=== PATIENT | female | born 1995 | race Caucasian/White ===

== ENCOUNTER 2020-05-20 21:19 | Emergency (ER) | payer BC ==
[2020-05-20] MEDS ORDERED: Sodium Chloride 0.9% 2.5 ML Syringe FLUSH PRN (21:31)
[2020-05-20] MEDS ORDERED: Sodium Chloride 0.9% 10 ML Syringe FLUSH PRN (21:31)
--- NOTE | 2020-05-20 21:38 | EDM.PDOC ---
ED HPI GENERAL MEDICAL PROBLEM - General Chief Complaint: Chest Pain Stated Complaint: CHEST PAIN Time Seen by Provider: 05/20/20 21:20 - History of Present Illness INITIAL COMMENTS - FREE TEXT/NARRATIVE: 24-year-old female with no chronic medical problems but who had Covid in February 2020 who is presenting with now resolved substernal chest pain. Patient has had trouble with chest pain on and off since having Covid. Today s he has had 7 out of 10 chest pain all day it worsens with movement and worsens with reaching though it is now 0 out of 10. There is no associated shortness of breath there is no nausea vomiting lightheadedness or dizziness. She denies cough fever or chill. No lower extremity pain or swelling. Patient is a non- smoker. Middle Chest Pain Score (Numeric/FACES): 3 - Related Data Allergies Allergy/AdvReac Type Severity Reaction Status Date / Time No Known Allergies Allergy Verified 05/20/20 21:36 Home Meds: Home Meds Ibuprofen 600 mg PO TIDMEALS 5 Days #15 tablet 05/20/20 [Rx] ED ROS GENERAL - Review of Systems Review Of Systems: See Below Free Text/Narrative/Comment: General: No fever. Skin: No rash. Eyes: No vision problems. ENT: No sore throat. Neck: No neck stiffness. Respiratory: No shortness of breath. Cardiac: Per HPI Gastrointestinal: No nausea, vomiting or abdominal pain. Urinary: No dysuria. Musculoskeletal: No myalgias/arthralgias. Neurologic: No headache. ED EXAM, GENERAL - Physical Exam Exam: See Below Free Text/Narrative:: General Appearance: No acute distress, appears comfortable Skin: No rash HEENT: Normocephalic/atraumatic, sclera anicteric, mucous membranes moist Neck: Normal range of motion Chest and Lungs: Bilateral breath sounds, clear to auscultation Cardiovascular: Minimally tachycardic rate and regular rhythm, no murmur Abdomen: Soft, non-tender Back: Normal Musculoskeletal: No edema or tenderness Neurologic: Awake, alert, no obvious deficits, moving all extremities Psychiatric: Appropriate, cooperative #1 Interpretation EKG Date: 05/20/20 Time: 21:38 EKG Interpretation Comments: Minimal sinus tachycardia with rate of 105 normal axis and otherwise normal intervals no acute ischemia Course - Vital Signs Last Recorded V/S: Last Vital Signs Temp 98.6 F 05/20/20 21:32 Pulse 112 H 05/20/20 22:30 Resp 20 05/20/20 22:30 BP 118/79 05/20/20 22:30 Pulse Ox 99 05/20/20 22:30 - Orders/Labs/Meds Orders: Active Orders 24 hr Category Date Time Status Saline Lock Insert [OM.PC] Stat Oth 05/20/20 21:31 Ordered Labs: Laboratory Tests 05/20/20 05/20/20 05/20/20 Range/Units 21:30 21:30 21:30 WBC 8.99 (4.0-11.0) K/uL RBC 4.77 (4.30-5.90) M/uL Hgb 13.6 (12.0-16.0) g/dL Hct 41.6 (36.0-46.0) % MCV 87.2 (80.0-98.0) fL MCH 28.5 (27.0-32.0) pg MCHC 32.7 (31.0-37.0) g/dL RDW Std Deviation 44.0 (28.0-62.0) fl RDW Coeff of Leeanne 14 (11.0-15.0) % Plt Count 300 (150-400) K/uL MPV 10.00 (7.40-12.00) fL Neut % (Auto) 44.1 L (48.0-80.0) % Lymph % (Auto) 43.9 H (16.0-40.0) % [place] % (Auto) 7.7 (0.0-15.0) % Eos % (Auto) 3.9 (0.0-7.0) % Baso % (Auto) 0.4 (0.0-1.5) % Neut # (Auto) 4.0 (1.4-5.7) K/uL Lymph # (Auto) 4.0 H (0.6-2.4) K/uL [place] # (Auto) 0.7 (0.0-0.8) K/uL Eos # (Auto) 0.4 (0.0-0.7) K/uL Baso # (Auto) 0.0 (0.0-0.1) K/uL Nucleated RBC % 0.0 /100WBC Nucleated RBCs # 0 K/uL D-Dimer, Quantitative < 0.19 (0.0-0.50) mg/L FEU Sodium 140 (136-145) mmol/L Potassium 3.6 (3.5-5.1) mmol/L Chloride 104 (98-107) mmol/L Carbon Dioxide 24.7 (21.0-32.0) mmol/L BUN 11 (7.0-18.0) mg/dL Creatinine 0.8 (0.6-1.0) mg/dL Est Cr Clr Drug Dosing 94.44 mL/min Estimated GFR (MDRD) > 60.0 ml/min Glucose 102 (74-106) mg/dL Calcium 9.1 (8.5-10.1) mg/dL Total Bilirubin 0.2 (0.2-1.0) mg/dL AST 13 L (15-37) IU/L ALT 18 (14-63) IU/L Alkaline Phosphatase 67 (46-116) U/L Troponin I < 0.050 (0.000-0.056) ng/mL Total Protein 7.9 (6.4-8.2) g/dL Albumin 4.1 (3.4-5.0) g/dL Globulin 3.8 (2.6-4.0) g/dL Albumin/Globulin Ratio 1.1 (0.9-1.6) Lipase 165 (73-393) U/L Urine HCG, Qual (NEGATIVE) 05/20/20 Range/Units 22:00 WBC (4.0-11.0) K/uL RBC (4.30-5.90) M/uL Hgb (12.0-16.0) g/dL Hct (36.0-46.0) % MCV (80.0-98.0) fL MCH (27.0-32.0) pg MCHC (31.0-37.0) g/dL RDW Std Deviation (28.0-62.0) fl RDW Coeff of Leeanne (11.0-15.0) % Plt Count (150-400) K/uL MPV (7.40-12.00) fL Neut % (Auto) (48.0-80.0) % Lymph % (Auto) (16.0-40.0) % [place] % (Auto) (0.0-15.0) % Eos % (Auto) (0.0-7.0) % Baso % (Auto) (0.0-1.5) % Neut # (Auto) (1.4-5.7) K/uL Lymph # (Auto) (0.6-2.4) K/uL [place] # (Auto) (0.0-0.8) K/uL Eos # (Auto) (0.0-0.7) K/uL Baso # (Auto) (0.0-0.1) K/uL Nucleated RBC % /100WBC Nucleated RBCs # K/uL D-Dimer, Quantitative (0.0-0.50) mg/L FEU Sodium (136-145) mmol/L Potassium (3.5-5.1) mmol/L Chloride (98-107) mmol/L Carbon Dioxide (21.0-32.0) mmol/L BUN (7.0-18.0) mg/dL Creatinine (0.6-1.0) mg/dL Est Cr Clr Drug Dosing mL/min Estimated GFR (MDRD) ml/min Glucose (74-106) mg/dL Calcium (8.5-10.1) mg/dL Total Bilirubin (0.2-1.0) mg/dL AST (15-37) IU/L ALT (14-63) IU/L Alkaline Phosphatase (46-116) U/L Troponin I (0.000-0.056) ng/mL Total Protein (6.4-8.2) g/dL Albumin (3.4-5.0) g/dL Globulin (2.6-4.0) g/dL Albumin/Globulin Ratio (0.9-1.6) Lipase (73-393) U/L Urine HCG, Qual NEGATIVE (NEGATIVE) Meds: Medications Discontinued Medications Generic Name Dose Route Start Last Admin Trade Name Freq PRN Reason Stop Dose Admin Ketorolac Tromethamine 15 mg 05/20/20 23:13 05/20/20 23:17 Toradol IVPUSH 05/20/20 23:14 15 mg NOW ONE Administration Sodium Chloride 10 ml 05/20/20 21:31 05/20/20 21:37 Saline Flush FLUSH 10 ml ASDIRECTED PRN Administration Keep Vein Open Sodium Chloride 2.5 ml 05/20/20:31 05/20/20 21:36 Saline Flush FLUSH 2.5 ml ASDIRECTED PRN Administration Keep Vein Open Departure - Departure Time of Disposition: 23:04 Disposition: Home, Self-Care 01 Condition: Good Clinical Impression: Chest pain - Discharge Information *PRESCRIPTION DRUG MONITORING PROGRAM REVIEWED*: Not Applicable *COPY OF PRESCRIPTION DRUG MONITORING REPORT IN PATIENT LINDY: Not Applicable Prescriptions: Ibuprofen 600 mg PO TIDMEALS 5 Days #15 tablet Instructions: Chest Wall Pain, [id number] Referrals: [facility] [Primary Care Provider] - Forms: ED Department Discharge Additional Instructions: Your EKG today was normal. Your labs were normal. Your chest x-ray was normal. I think the pain that you are experiencing is due to some inflammation inside the wall of your chest. I encourage you to take the ibuprofen as scheduled for 5 days with food. It is safe to combine this with Tylenol if you have additional discomfort. If you are feeling perfectly normal after completing this course, then you do not need to follow-up beyond your normal well visits. However, if you have any residual symptoms after completing the course then please follow-up with your primary care doctor. Sepsis Event Note (ED) - Focused Exam Vital Signs: Vital Signs Temp Pulse Resp BP Pulse Ox 05/20/20 22:30 112 H 20 118/79 99 05/20/20 21:32 98.6 F 121 H 24 H 140/83 99 - My Orders Last 24 Hours: My Active Orders 05/20/20 21:31 Saline Lock Insert [OM.PC] Stat - Assessment/Plan Last 24 Hours: My Active Orders 05/20/20 21:31 Saline Lock Insert [OM.PC] Stat Assessment:: 24-year-old female presenting with now resolved substernal chest pain. The lack of association with food the fact that worsens with bending and twisting and wi th reaching suggests musculoskeletal chest pain potentially pleurisy. However, other etiologies considered as well she does have a minimal tachycardia and I think on balance this is related to anxiety. However, PE considered and D-dimer sent. Very low concern for ACS and EKG is without acute ischemia. Troponin sent to evaluate for any findings of myocarditis but I think is very unlikely. Pneumonia pneumothorax considered also felt less likely but chest x-ray pending. There is no epigastric or right upper quadrant tenderness that would suggest biliary pathology. Should unexpected LFT abnormalities be found and could consider right upper quadrant ultrasound at that time. Right now patient is asymptomatic no indication for treatment at this time. If evaluation is reassuring, I am optimistic for discharge home with PCP follow-up but will continue to reassess. Patient's labs are normal D-dimer normal chest x-ray normal. Patient has remained asymptomatic here. She was given a dose of Toradol as the pharmacies are closed she was discharged with ibuprofen strict return precautions discussed and understood primary care follow-up encouraged.
[2020-05-20 22:10] LABS: BLOOD UREA NITROGEN,BUN 11 mg/dL (7.0-18.0); CARBON DIOXIDE,CO2 24.7 mmol/L (21.0-32.0); CHLORIDE,CL 104 mmol/L (98-107); GLUCOSE RANDOM 102 mg/dL (74-106); LIPASE 165 U/L (73-393); POTASSIUM,K 3.6 mmol/L (3.5-5.1); SODIUM,NA 140 mmol/L (136-145)
--- NOTE | 2020-05-20 22:58 | CR ---
Indication: Chest pain Technique: Chest 2 views Comparison: None Findings/Impression: Cardiovascular and mediastinum: Heart size and vasculature are normal in caliber and appearance. Mediastinum is within normal limits. Lungs and pleural spaces: Lungs are clear. No sign of infiltrate or mass. No sign of pleural effusion. No pneumothorax. Bones and soft tissues: No significant findings. Dictated by Julián Castaneda MD @ May 20 2020 10:57PM Signed by Dr. Julián Castaneda @ May 20 2020 10:58PM
[2020-05-20] MEDS ORDERED: Ketorolac 15 MG/ML SDV IVPUSH ONE (23:13)
== END 2020-05-20 23:49 | disposition home or self-care (01) ==
LOC: MW.ED 21:19
DX: R07.9 Chest pain, unspecified (principal); Z86.16 Personal history of COVID-19
CPT/HCPCS: 36415; 71046; 80053; 81025; 83690; 84484; 85025; 85379; 93005; 96374; 99285; J1885; 93010; 99284